=== PATIENT | male | born 1930 ===

== ENCOUNTER 2021-01-10 08:42 | Outpatient (CLI) | payer OTHER | END 2021-01-10 08:45 | disposition home or self-care (01) | LOC: NUCLEAR 08:42 | PROVIDERS: ATTEND Obstetrics & Gynecology | DX: G31.1 Senile degeneration of brain, not elsewhere classified (principal); G31.83 Neurocognitive disorder with Lewy bodies | CPT/HCPCS: 78814; A9552 ==